=== PATIENT | male | born 1955 | race Caucasian/White ===

== ENCOUNTER 2025-02-15 12:58 | Outpatient (CLI) | payer MEDICARE, SELFPAY ==
--- OUTSIDE RECORDS SUMMARY | 2025-02-15 13:21 | XMS_ITS | Clinical Summary ---
Author Organization [facility] [employer] [facility] Address [address] [phone] Phone Care Team Providers Care Fraud Prevention Analyst Name Role Phone Mandi Francis MD Primary Care Provider [phone] Allergies No known active allergies Medications albuterol HFA (PROVENTIL HFA;VENTOLIN HFA) 108 (90 Base) MCG/ACT inhaler Inhale 2 puffs every 6 hours by inhalation route as needed for 30 days. Active aspirin ([facility] MARIELA) 81 MG EC tablet Take 81 mg by mouth 1 (one) time each day Active clopidogrel (PLAVIX) 75 MG tablet Take 75 mg by mouth 1 (one) time each day Active loratadine (CLARITIN) 10 MG tablet Take 10 mg by mouth 1 (one) time each day Active metoprolol succinate XL (TOPROL XL) 25 MG 24 hr tablet Take 25 mg by mouth 1 (one) time each day Active pravastatin (PRAVACHOL) 40 MG tablet Take 40 mg by mouth 1 (one) time each day Active Fluticasone Furoate-Vilante rol (Breo Ellipta) 100-25 MCG/ACT aerosol powder Inhale 1 (one) time each day Active losartan (COZAAR) 50 MG tablet Take 50 mg by mouth 1 (one) time each day Active Active Problems Problem Noted Date Diagnosed Date Chronic kidney disease stage 3B 01/11/2025 Osteoarthritis 01/11/2025 Chronic obstructive pulmonary disease 01/11/2025 Peripheral vascular disease 01/11/2025 Disorder of kidney 10/26/2024 Cataract 12/11/2023 Prediabetes 08/14/2023 Well controlled type 2 diabetes mellitus 024 Essential hypertension 03/26/2023 Hyperlipidemia 03/26/2023 Encounters Date Type Department Care Team Description 01/29/2025 Documentation Only [facility], [address] [place] [phone] Gee Rocha MD 01/13/2025 Documentation Only [facility], [address] [place] [address] Gee Rocha MD 01/12/2025 Documentation Only [facility], [facility] [address] [facility] [address] [place] [address] Gee Rocha MD 01/11/2025 10:45 AM COMPUTER TYPESETTER Office Visit [facility], [address] [place] [address] Gee Rocha MD Chronic kidney disease stage 3B (HCC); Essential hypertension; Prediabetes; Hyperlipidemia, not otherwise specified; Peripheral vascular disease (HCC); Primary generalized osteoarthritis; Simple chronic bronchitis (HCC) from Last 3 Months Family History Medical History Relation Comments Cancer Maternal Grandfather Cancer Mother Diabetes Mother Relation Status Comments Father Maternal Grandfather Mother Social History Tobacco Use Types Packs/Day Years Used Date Smoking Tobacco: Former Cigarettes Tobacco Cessation:Counseling Given: Not Answered Alcohol Use Standard Drinks/Week Comments Not Currently 0 (1 standard drink = 0.6 oz pur e alcohol) Sex and Gender Information Value Date Recorded Sex Assigned at Not on file Legal Sex Male 11:28 AM EDT Gender Identity Not on file Sexual Orientation Not on file Last Filed Vital Signs Vital Sign Reading Time Taken Comments Blood Pressure 130/80 01/11/2025 11:32 AM COMPUTER TYPESETTER Pulse 103 01/11/2025 11:32 AM COMPUTER TYPESETTER Temperature 36.8 C (98.2 F) 01/11/2025 11:32 AM COMPUTER TYPESETTER Respiratory Rate 18 01/11/2025 11:32 AM COMPUTER TYPESETTER Oxygen Saturation 95% 01/11/2025 11:32 AM COMPUTER TYPESETTER Inhaled Oxygen Concentration - - Weight 78.9 kg (174 lb) 01/11/2025 11:32 AM COMPUTER TYPESETTER Height 175.3 cm (5' 9) 01/11/2025 11:32 AM COMPUTER TYPESETTER Body Mass Index 25.7 01/11/2025 11:32 AM COMPUTER TYPESETTER Plan of Treatment Upcoming Encounters Date Type Department Care Team (Late st Contact Info) Description 02/23/2025 10:15 AM COMPUTER TYPESETTER Office Visit [facility], [facility] [address] [facility] [address] [place] [phone] Gee Rocha MD [address] [place] [address] Health Maintenance Due Date Last Done Comments Colorectal Cancer Screening: Annual FOBT 2006 Colorectal Cancer Screening: Colonoscopy 2006 Colorectal Cancer Screening: Sigmoidoscopy 2006 Pneumococcal Vaccine: 50+ Ye ars (2 of 2 - PCV) 03/26/2024 03/26/2023 Influenza Vaccine (#1) 2024 12/11/2023 Diabetes: Hemoglobin A1C 01/11/2025 09/02/2024 Diabetes: Ophthalmology Exam 01/11/2025 Diabetes: Pedal Pulse Checked 01/11/2025 Diabetes: Sensory Foot Exam 01/11/2025 Diabetes: Visual Foot Exam 01/11/2025 Hepatitis B Vaccine Aged Out No longe r eligible based on patient's age to complete this topic Procedures Procedure Name Priority Date/Time Associated Diagnosis Comments EXT RESULT ENTRY Routine 09/02/2024 from Last 3 Months or Most Recently Relevant to Health Maintenance Results * (ABNORMAL) EXT RESULT ENTRY (09/02/2024) WBC 12.1(A) 3.3 - 10.0 10*3/ML Red Blood Cell Count 4.85 Hemoglobin 14.9 13.5 - 17.5 Hematocrit 43.8 41.0 - 53.0 Platelets 394 150 - 399 10*3/UL MCV 90.3 82.0 - 108.0 Sodium 140 137 - 147 Potassium 4.5 3.4 - 5.5 Chloride 101.0 99.0 - 108.0 Carbon Dioxide 28 mmol/L Anion Gap 14.5 <=30 MMOL/L Glucose 127 60 - 200 BUN 24(A) 4 - 21 mg/dL Creatinine 1.63(A) 0.60 - 1.30 mg/dL Total Protein 7.0 6.4 - 8.2 G/DL Albumin 4.5 3.5 - 5.0 g/dL Calcium 9.6 8.7 - 10.7 mg/dL eGFR Non-Afr [place] 42(L) Hemoglobin A1C 6.1(A) 4.0 - 6.0 Triglycerides 149 Cholesterol, Total 163 HDL 29(L) mg/dL LDL-Calculated 104 09/02/2024 us Historical Provider LAB BLOOD ORDERABLES Hayley l Result from Last 3 Months or Most Recently Relevant to Health Maintenance Insurance A[employer] MCR Adv ([id number]) Advance Directives Documents on File Type Date Recorded Patient Speed Runner Expl anation Advance Care Planning 01/12/2025 8:08 AM Care Teams Fraud Prevention Analyst Relationship Specialty Start Date End Date Mandi rFancis MD [address] [place] [id number] PCP - General Internal Medicine 10/26/24
--- OUTSIDE RECORDS SUMMARY | 2025-02-15 13:21 | XMS_ITS | Clinical Summary ---
Author Organization [facility] Address [address] [place] [address] Care Team Providers Care Pattern Data Operator Name Role Phone Tito Raymond MD Primary Care Provider Allergies No known active allergies Medications albuterol sulfate HFA 108 (90 Base) MCG/ACT inhaler Inhale 2 puffs into the lungs every 6 (six) hours as needed for Wheezing. Active aspirin 81 MG chewable tablet Chew 1 tablet (81 mg total) by mouth daily. Active fluticasone furoate-vilante rol (BREO ELLIPTA) 100-25 MCG/ACT inhaler Inhale 1 puff into the lungs daily. Active clopidogrel (PLAVIX) 75 MG tablet Take 1 tablet (75 mg total) by mouth daily. Active loratadine (CLARITIN) 10 MG tablet Take 1 tablet (10 mg total) by mouth daily. Active meloxicam (MOBIC) 15 MG tablet Take 1 tablet (15 mg total) by mouth daily. Active metoprolol succinate ER (TOPROL-XL) 25 MG 24 hr tablet Take 1 tablet (25 mg total) by mouth daily. Active pravastatin (PRAVACHOL) 40 MG tablet Take 1 tablet (40 mg total) by mouth nightly at bedtime. Active Social History Tobacco Use Types Packs/Day Years Used Date Smoking Tobacco: Former Cigarettes Smokeless Tobacco: Never Tobacco Cessation:Counseling Given: Not Answered Alcohol Use Standard Drinks/Week Comments Not Currently 0 (1 standard drink = 0.6 oz pur e alcohol) occ. Sex and Gender Information Value Date Recorded Sex Assigned at Not on file Legal Sex Male 2:49 PM DOG BEHAVIORIST Gender Identity Not on file Sexual Orientation Not on file Last Filed Vital Signs Vital Sign Reading Time Taken Comments Blood Pressure 142/101 05/11/2024 9:57 AM CDT Pulse 82 05/11/2024 9:57 AM CDT Temperature 36.4 C (97.5 F) 05/11/2024 8:55 AM CDT Respiratory Rate 16 05/11/2024 8:55 AM CDT Oxygen Saturation 97% 05/11/2024 9:57 AM CDT Inhaled Oxygen Concentration - - Weight 81.6 kg (180 lb) 05/11/2024 8:55 AM CDT Height 175.3 cm (5' 9) 05/11/2024 8:55 AM CDT Body Mass Index 26.58 05/11/2024 8:55 AM CDT Plan of Treatment Health Maintenance Due Date Last Done Comments Colorectal Cancer Screening Colonoscopy (10 Years) 1957 Hepatitis C 08/20/1975 Zoster Vaccines (1 of 2) 08/20/2007 AAA SCREENING 2022 Annual Medicare Wellness Visit 2022 COVID-19 Vaccine ( season) 2024 12/14/2021, 01/25/2021, 06/21/2020, Additional history exists Influenza Adult (#1) 2024 12/11/2023, 12/15/2021, 12/19/2013 RSV Immunization or 60+ Years (1 - 1-dose 75+ series) 2032 DTaP, Tdap and Td Vaccines (2 - Td or Tdap) 10/09/2032 10/09/2022 Pneumococcal Vaccine: 50+ Years Completed 03/26/2023, 10/09/2022 Hepatitis A Vaccines Aged Out No long er eligible based on patient's age to complete this topic Meningococcal B Vaccine Aged Out No l onger eligible based on patient's age to complete this topic Meningococcal Vaccine Aged Out No papo dolly eligible based on patient's age to complete this topic RSV Immunizations Under 20 Months Aged Out No longer eligible based on patient's age to complete this topic Medical Devices Implanted Type Area Head Screen Worker Device Identifier Shelf Expiration Date Model / Serial / Lot Tecnis 1-Piece Iol With Tecnis Simplicity Delivery System Implanted:Qty: 1 on 05/11/2024 by Otis Caldwell MD at [facility] Lens Left: Eye [employer] 10/08/2026 / [id number] / Tecnis 1-Piece Iol With Tecnis Simplicity Delivery System Implanted:Qty: 1 on 04/13/2024 by Otis Caldwell MD at [facility] Right: Eye [employer] 10/09/2025 [id number] / [id number] / Insurance [facility] MEDICARE Care Teams Pattern Data Operator Relationship Specialty Start Date End Date Tito Raymond MD [address] [place] [phone] PCP - General INTERNAL MEDICINE 04/07/24
--- OUTSIDE RECORDS SUMMARY | 2025-02-15 13:21 | XMS_ITS | Data Portability ---
Author Organization [facility] Address [address] [place] [address] Care Team Providers Care [employer] Inspector Name Role Phone SARWAT WHEELER Primary Care Provider Assessment Encounter Date Assessment Date Assessment LastModified by Organization Details LastModified Time 01/20/2021 01/20/2021 GAEL Riley Not available 01/20/2021 13:32:08 12/21/2021 12/21/2021 GAEL Stallings Not available 12/21/2021 15:00:26 07/03/2022 07/03/2022 Altagracia MAYO Not available 07/03/2022 12:15:51 Plan of Treatment Reminders Order Date Submit Date Provider Last Modified By Organization Details Last Modified Time Details Appointments None recorded. Lab HbA1c (hemoglobi n A1c), blood 2022 023 GEORGE PÉREZ, Mika [address], [address], [place], [address], 3 09:16:41 CMP, serum or plasma 2022 023 GEORGE PÉREZ, [facility] [address], [address], [place], [address], 3 06:17:48 CBC w/ auto diff 2022 023 [facility] [address], [facility] [address], [place], [address], 3 06:17:49 lipid panel, serum 2022 023 GEORGE PÉREZ, Mika [address], [address], [place], [address], 3 06:17:47 TSH + free T4, serum 2022 023 GEORGE PÉREZ, Mika [address], [address], [place], [address], 3 09:16:41 albumin/cr eatinine, mass ratio, urine 2022 023 tbogueVincent PÉREZ, Mika [address], [address], [place], [address], 3 12:51:45 ferritin, serum or plasma 2021 022 GEORGE PÉREZ, Mika [address], [address], [place], [address], 2 08:16:11 iron + total iron-breanna ng capacity (TIBC), serum 2021 022 GEORGE PÉREZ, Mika [address], [address], [place], [address], 2 08:16:10 CBC w/ auto diff 2021 022 GEORGE PÉREZ, Mika [address], [address], [place], [address], 2 08:16:09 erythrocyt e sedimentat ion rate by westergren method 2021 022 GEORGE PÉREZ, Mika [address], [address], [place], [address], 08:16:10 C reactive protein, QN, serum or plasma 2021 [facility] [address] [facility], [address], [place], [address], 08:16:11 Referral None recorded. Procedures None recorded. Surgeries None recorded. Imaging electrocar diogram 2021 [facility] ([facility]), [address] [place], [address], 14:50:21 XR, chest, 2 view 2021 [facility] ([facility]), [address] [place], [address], 14:50:21 Medication Orders fluticason e propionate 50 mcg/actuat ion nasal spray,susp ension 2022 023 [id number] In [facility], [address] [place] [address], [address], 3 12:51:44 loratadine 10 mg tablet 2022 023 [facility] 67116 In [facility], [address] [place] [address], [address], 3 12:51:44 metoprolol succinate ER 25 mg tablet,ext ended release 24 hr 2022 023 [facility] [address], [address], 3 12:51:44 clopidogre l 75 mg tablet 2022 023 [facility] [address], [address], 3 12:51:44 albuterol sulfate HFA 90 mcg/actuat ion aerosol inhaler 2022 023 [facility] 11958 In [facility], [address] [place] [address], [address], 3 12:51:44 Breo Ellipta 100 mcg-25 mcg/dose powder for inhalation 2022 023 [facility] 71461 In [facility], [address] [place] [address], [address], 3 12:51:45 losartan 50 mg tablet 2022 023 [facility] 42531 In [facility], [address] [place] [address], [address], 3 12:51:45 fluticason e propionate 50 mcg/actuat ion nasal spray,susp ension 2022 023 GEORGE [facility] 24537 In [facility], [address] [place] [address], [address], 3 12:00:52 loratadine 10 mg tablet 2022 023 GEORGE [facility] 51853 In [facility], [address] [place] [address], [address], 3 12:00:53 metoprolol succinate ER 25 mg tablet,ext ended release 24 hr 2022 023 GEORGE [facility] 77078 In [facility], [address] [place] [address], [address], 3 12:19:24 clopidogre l 75 mg tablet 2022 023 GEORGE [facility] 53248 In [facility], [address] [place] [address], [address], 3 12:00:53 budesonide -formotero l HFA 160 mcg-4.5 mcg/actuat ion aerosol inhaler 2022 023 [facility] 92829 In [facility], [address] [place] [address], [address], 3 12:31:47 albuterol sulfate HFA 90 mcg/actuat ion aerosol inhaler 2022 023 GEORGE [facility] 78662 In [facility], [address] [place] [address], [address], 3 12:00:52 fluticason e propionate 50 mcg/actuat ion nasal spray,susp ension 2021 022 GEORGE [facility] [address], [address], 2 13:03:13 loratadine 10 mg tablet 2021 022 GEORGE [facility] [address], [address], 2 13:03:15 clopidogre l 75 mg tablet 2021 022 GEORGE [facility] [address], [address], 2 13:03:13 guaifenesi n ER 600 mg tablet, extended release 12 hr 2021 023 GEORGE [facility] [address], [address], 3 11:23:21 Medrol (Erik) 4 mg tablets in a dose pack 2021 022 [facility] [address], [address], 3 11:31:46 cefdinir 300 mg capsule 2021 022 [facility] [address], [address], 3 11:31:43 losartan 50 mg tablet 2021 022 GEORGE [facility] [address], [address], 2 13:03:15 fluticason e propionate 50 mcg/actuat ion nasal spray,susp ension 2021 022 GEORGE [facility] [address], [address], 2 12:18:30 loratadine 10 mg tablet 2021 022 GEORGE [facility] [address], [address], 2 13:39:50 Symbicort 160 mcg-4.5 mcg/actuat ion HFA aerosol inhaler 2021 022 [facility] [address], [address], 3 12:31:47 guaifenesi n ER 600 mg tablet, extended release 12 hr 2021 022 [facility] [address], [address], 3 11:23:13 Medrol (Erik) 4 mg tablets in a dose pack 2021 022 [facility] [address], [address], 3 11:31:46 albuterol sulfate HFA 90 mcg/actuat ion aerosol inhaler 2021 022 [facility]OR[facility] [address], [address], 21:02:21 clopidogre l 75 mg tablet 2021 022 GEORGE [facility] [address], [address], 13:29:40 losartan 50 mg tablet 2021 022 [facility] [address], [address], 13:29:40 hydrochlor othiazide 12.5 mg tablet 2020 021 [facility] [address], [address], 13:01:51 Patient TargetsNo targets recorded. Patient Instructions Encounter Date Encounter Id Patient Instructions Last Modified By Organization Details Last Modified Time 12/21/2021 [id number] A healthy lifestyle: care instructions Not available 12/21/2021 15:50:23 chronic obstructive pulmonary disease (COPD): care instructions Not available 12/21/2021 12:53:46 chronic obstructive pulmonary disease (COPD) flare-ups: care instructions Not available 12/21/2021 12:53:45 COPD exacerbatio n plan: care instructions Not available 12/21/2021 12:53:46 07/03/2022 [id number] A healthy lifestyle: care instructions Not available 07/03/2022 12:00:49 10/09/2022 [id number] A healthy lifestyle: care instructions Not available 10/09/2022 12:51:44 Reason for Referral None Reported. Results Created Date Observation Date Name Description Value Unit Range Abnormal Flag Note LastModifiedBy Organization Detail LastModifiedTime 12/23/19 21 12/23/2020 TSH+F REE T4 TSH 1.880 uIU/m L 0.450- 4.500 Not Available [facility] ([facility]) [address] [place], [address], 12/23/2020 10:12:02 12/23/19 21 12/23/2020 TSH+F REE T4 T4,free(dire ct) 1.29 NG/dL 0.82-1 .77 Not Available [facility] ([facility]) [address] [place], [address], 12/23/2020 10:12:02 12/23/19 21 12/23/2020 CBC WITH DIFFE RENTI AL/PL ATELE T WBC 9.6 x10e3 /uL 3.4-10 .8 Not Available [facility] ([facility]) [address] [place], [address], 12/23/2020 10:12:02 12/23/19 21 12/23/2020 CBC WITH DIFFE RENTI AL/PL ATELE T RBC 5.35 x10e6 /uL 4.14-5 .80 Not Available [facility] ([facility]) [address] [place], [address], 12/23/2020 10:12:02 12/23/19 21 12/23/2020 CBC WITH DIFFE RENTI AL/PL ATELE T hemoglobin 17.3 g/dL 13.0-1 7.7 Not Available [facility] ([facility]) [address] [place], [address], 12/23/2020 10:12:02 12/23/19 21 12/23/2020 CBC WITH DIFFE RENTI AL/PL ATELE T hematocrit 50.0 % 37.5-5 1.0 Not Available [facility] ([facility]) [address] [place], [address], 12/23/2020 10:12:02 12/23/19 21 12/23/2020 CBC WITH DIFFE RENTI AL/PL ATELE T MCV 94 fL 79-97 Not Available [facility] ([facility]) [address] [place], [address], 12/23/2020 10:12:02 12/23/19 21 12/23/2020 CBC WITH DIFFE RENTI AL/PL ATELE T MCH 32.3 pg 26.6-3 3.0 Not Available [facility] ([facility]) [address] [facility], [place], [address], 12/23/2020 10:12:02 12/23/19 21 12/23/2020 CBC WITH DIFFE RENTI AL/PL ATELE T MCHC 34.6 g/dL 31.5-3 5.7 Not Available [facility] ([facility]) [address] [place], [address], 12/23/2020 10:12:02 12/23/19 21 12/23/2020 CBC WITH DIFFE RENTI AL/PL ATELE T RDW 11.7 % 11.6-1 5.4 Not Available [facility] ([facility]) [address] [place], [address], 12/23/2020 10:12:02 12/23/19 21 12/23/2020 CBC WITH DIFFE RENTI AL/PL ATELE T platelets 355 x10e3 /uL 150-45 0 Not Available [facility] ([facility]) [address] [place], [address], 12/23/2020 10:12:02 12/23/19 21 12/23/2020 CBC WITH DIFFE RENTI AL/PL ATELE T neutrophils 65 % not estab. Not Available [facility] ([facility]) [address] [place], [address], 12/23/2020 10:12:02 12/23/19 21 12/23/2020 CBC WITH DIFFE RENTI AL/PL ATELE T lymphs 20 % not estab. Not Available [facility] ([facility]) [address] [facility], [place], [address], 12/23/2020 10:12:02 12/23/19 21 12/23/2020 CBC WITH DIFFE RENTI AL/PL ATELE T monocytes 9 % not estab. Not Available [facility] ([facility]) [address] [facility], [place], [address], 12/23/2020 10:12:02 12/23/19 21 12/23/2020 CBC WITH DIFFE RENTI AL/PL ATELE T eos 5 % not estab. Not Available [facility] ([facility]) [address] [facility], [place], [address], 12/23/2020 10:12:02 12/23/19 21 12/23/2020 CBC WITH DIFFE RENTI AL/PL ATELE T basos 1 % not estab. Not Available [facility] ([facility]) [address] [place], [address], 12/23/2020 10:12:02 12/23/19 21 12/23/2020 CBC WITH DIFFE RENTI AL/PL ATELE T immature cells PATTERN CUTTER Not Available [facility] ([facility]) [address] [place], [address], 12/23/2020 10:12:02 12/23/19 21 12/23/2020 CBC WITH DIFFE RENTI AL/PL ATELE T neutrophils (absolute) 6.2 x10e3 /uL 1.4-7. 0 Not Available [facility] ([facility]) [address] [facility], [place], [address], 12/23/2020 10:12:02 12/23/19 21 12/23/2020 CBC WITH DIFFE RENTI AL/PL ATELE T lymphs (absolute) 1.9 x10e3 /uL 0.7-3. 1 Not Available [facility] ([facility]) [address] [facility], [place], [address], 12/23/2020 10:12:02 12/23/19 21 12/23/2020 CBC WITH DIFFE RENTI AL/PL ATELE T monocytes(ab solute) 0.8 x10e3 /uL 0.1-0. 9 Not Available [facility] ([facility]) [address] [facility], [place], [address], 12/23/2020 10:12:02 12/23/19 21 12/23/2020 CBC WITH DIFFE RENTI AL/PL ATELE T eos (absolute) 0.5 x10e3 /uL 0.0-0. 4 above high normal Not Available [facility] ([facility]) [address] [facility], [place], [address], 12/23/2020 10:12:02 12/23/19 21 12/23/2020 CBC WITH DIFFE RENTI AL/PL ATELE T baso (absolute) 0.1 x10e3 /uL 0.0-0. 2 Not Available [facility] ([facility]) [address] [facility], [place], [address], 12/23/2020 10:12:02 12/23/19 21 12/23/2020 CBC WITH DIFFE RENTI AL/PL ATELE T immature granulocytes 0 % not estab. Not Available [facility] ([facility]) [address] [facility], [place], [address], 12/23/2020 10:12:02 12/23/19 21 12/23/2020 CBC WITH DIFFE RENTI AL/PL ATELE T immature grans (abs) 0.0 x10e3 /uL 0.0-0. 1 Not Available [facility] ([facility]) [address] [facility], [place], [address], 12/23/2020 10:12:02 12/23/19 21 12/23/2020 CBC WITH DIFFE RENTI AL/PL ATELE T NRBC PATTERN CUTTER Not Available [facility] ([facility]) [address] [facility], [place], [address], 12/23/2020 10:12:02 12/23/19 21 12/23/2020 CBC WITH DIFFE RENTI AL/PL ATELE T hematology comments: PATTERN CUTTER Not Available [facility] ([facility]) [address] [facility], [place], [address], 12/23/2020 10:12:02 12/23/19 21 12/23/2020 LIPID PANEL cholesterol, total 209 mg/dL 100-19 9 above high normal Not Available [facility] ([facility]) [address] [facility], [place], [address], 12/23/2020 10:12:03 12/23/19 21 12/23/2020 LIPID PANEL triglyceride s 99 mg/dL 0-149 Not Available [facility] ([facility]) [address] [facility], [place], [address], 12/23/2020 10:12:03 12/23/19 21 12/23/2020 LIPID PANEL HDL cholesterol 52 mg/dL >39 Not Available [facility] ([facility]) [address] [facility], [place], [address], 12/23/2020 10:12:03 12/23/19 21 12/23/2020 LIPID PANEL VLDL cholesterol rajesh 18 mg/dL 5-40 Not Available [facility] ([facility]) [address] [facility], [place], [address], 12/23/2020 10:12:03 12/23/19 21 12/23/2020 LIPID PANEL LDL chol calc ([facility]) 139 mg/dL 0-99 above high normal Not Available [facility] ([facility]) [address] [place], [address], 12/23/2020 10:12:03 12/23/19 21 12/23/2020 LIPID PANEL comment: PATTERN CUTTER Not Available [facility] ([facility]) [address] [place], [address], 12/23/2020 10:12:03 12/23/19 21 12/23/2020 IRON AND TIBC iron bind.cap.(TI BC) 303 ug/dL 250-45 0 Not Available [facility] ([facility]) [address] [place], [address], 12/23/2020 10:12:04 12/23/19 21 12/23/2020 IRON AND TIBC UIBC 108 ug/dL 111-34 3 below low normal Not Available [facility] ([facility]) [address] [place], [address], 12/23/2020 10:12:04 12/23/19 21 12/23/2020 IRON AND TIBC iron 195 ug/dL 38-169 above high normal Not Available [facility] ([facility]) [address] [place], [address], 12/23/2020 10:12:04 12/23/19 21 12/23/2020 IRON AND TIBC iron saturation 64 % 15-55 above high normal Not Available [facility] ([facility]) [address] [place], [address], 12/23/2020 10:12:04 12/23/19 21 12/23/2020 ALBUM IN/CR EATIN INE RATIO ,URIN E creatinine, urine 169.7 mg/dL not estab. Not Available [facility] ([facility]) [address] [place], [address], 12/23/2020 10:12:05 12/23/19 21 12/23/2020 ALBUM IN/CR EATIN INE RATIO ,URIN E albumin, urine 12.9 ug/mL not estab. Not Available [facility] ([facility]) [address] [place], [address], 12/23/2020 10:12:05 12/23/19 21 12/23/2020 ALBUM IN/CR EATIN INE RATIO ,URIN E alb/creat ratio 8 mg/g_ creat 0-29 Haily l: 0 - 29 Moder ately incre ased: 30 - 300 Sever iliana incre ased: >300 Not Available [facility] ([facility]) [address] [facility], [place], [address], 12/23/2020 10:12:05 12/23/19 21 12/23/2020 WOODY TIN ferritin 821 NG/mL 30-400 above high normal Not Available [facility] ([facility]) [address] [facility], [place], [address], 12/23/2020 10:12:06 06/07/19 22 06/07/2021 CBC WITH DIFFE RENTI AL/PL ATELE T WBC 9.2 x10e3 /uL 3.4-10 .8 Not Available [facility] ([facility]) [address] [place], [address], 06/07/2021 08:16:09 06/07/19 22 06/07/2021 CBC WITH DIFFE RENTI AL/PL ATELE T RBC 4.75 x10e6 /uL 4.14-5 .80 Not Available [facility] ([facility]) [address] [place], [address], 06/07/2021 08:16:09 06/07/19 22 06/07/2021 CBC WITH DIFFE RENTI AL/PL ATELE T hemoglobin 14.6 g/dL 13.0-1 7.7 Not Available [facility] ([facility]) [address] [place], [address], 06/07/2021 08:16:09 06/07/19 22 06/07/2021 CBC WITH DIFFE RENTI AL/PL ATELE T hematocrit 43.6 % 37.5-5 1.0 Not Available [facility] ([facility]) [address] [facility], [place], [address], 06/07/2021 08:16:09 06/07/19 22 06/07/2021 CBC WITH DIFFE RENTI AL/PL ATELE T MCV 92 fL 79-97 Not Available [facility] ([facility]) [address] [facility], [place], [address], 06/07/2021 08:16:09 06/07/19 22 06/07/2021 CBC WITH DIFFE RENTI AL/PL ATELE T MCH 30.7 pg 26.6-3 3.0 Not Available [facility] ([facility]) [address] [facility], [place], [address], 06/07/2021 08:16:09 06/07/19 22 06/07/2021 CBC WITH DIFFE RENTI AL/PL ATELE T MCHC 33.5 g/dL 31.5-3 5.7 Not Available [facility] ([facility]) [address] [place], [address], 06/07/2021 08:16:09 06/07/19 22 06/07/2021 CBC WITH DIFFE RENTI AL/PL ATELE T RDW 12.3 % 11.6-1 5.4 Not Available [facility] ([facility]) [address] [place], [address], 06/07/2021 08:16:09 06/07/19 22 06/07/2021 CBC WITH DIFFE RENTI AL/PL ATELE T platelets 327 x10e3 /uL 150-45 0 Not Available [facility] ([facility]) [address] [place], [address], 06/07/2021 08:16:09 06/07/19 22 06/07/2021 CBC WITH DIFFE RENTI AL/PL ATELE T neutrophils 63 % not estab. Not Available [facility] ([facility]) [address] [facility], [place], [address], 06/07/2021 08:16:09 06/07/19 22 06/07/2021 CBC WITH DIFFE RENTI AL/PL ATELE T lymphs 21 % not estab. Not Available [facility] ([facility]) [address] [facility], [place], [address], 06/07/2021 08:16:09 06/07/19 22 06/07/2021 CBC WITH DIFFE RENTI AL/PL ATELE T monocytes 8 % not estab. Not Available [facility] ([facility]) [address] [facility], [place], [address], 06/07/2021 08:16:09 06/07/19 22 06/07/2021 CBC WITH DIFFE RENTI AL/PL ATELE T eos 7 % not estab. Not Available [facility] ([facility]) [address] [facility], [place], [address], 06/07/2021 08:16:09 06/07/19 22 06/07/2021 CBC WITH DIFFE RENTI AL/PL ATELE T basos 1 % not estab. Not Available [facility] ([facility]) [address] [facility], [place], [address], 06/07/2021 08:16:09 06/07/19 22 06/07/2021 CBC WITH DIFFE RENTI AL/PL ATELE T immature cells PATTERN CUTTER Not Available [facility] ([facility]) [address] [place], [address], 06/07/2021 08:16:09 06/07/19 22 06/07/2021 CBC WITH DIFFE RENTI AL/PL ATELE T neutrophils (absolute) 5.8 x10e3 /uL 1.4-7. 0 Not Available [facility] ([facility]) [address] [place], [address], 06/07/2021 08:16:09 06/07/19 22 06/07/2021 CBC WITH DIFFE RENTI AL/PL ATELE T lymphs (absolute) 1.9 x10e3 /uL 0.7-3. 1 Not Available [facility] ([facility]) [address] [facility], [place], [address], 06/07/2021 08:16:09 06/07/19 22 06/07/2021 CBC WITH DIFFE RENTI AL/PL ATELE T monocytes(ab solute) 0.7 x10e3 /uL 0.1-0. 9 Not Available [facility] ([facility]) [address] [facility], [place], [address], 06/07/2021 08:16:09 06/07/19 22 06/07/2021 CBC WITH DIFFE RENTI AL/PL ATELE T eos (absolute) 0.6 x10e3 /uL 0.0-0. 4 above high normal Not Available [facility] ([facility]) [address] [facility], [place], [address], 06/07/2021 08:16:09 06/07/19 22 06/07/2021 CBC WITH DIFFE RENTI AL/PL ATELE T baso (absolute) 0.1 x10e3 /uL 0.0-0. 2 Not Available [facility] ([facility]) [address] [facility], [place], [address], 06/07/2021 08:16:09 06/07/19 22 06/07/2021 CBC WITH DIFFE RENTI AL/PL ATELE T immature granulocytes 0 % not estab. Not Available [facility] ([facility]) [address] [place], [address], 06/07/2021 08:16:09 06/07/19 22 06/07/2021 CBC WITH DIFFE RENTI AL/PL ATELE T immature grans (abs) 0.0 x10e3 /uL 0.0-0. 1 Not Available [facility] ([facility]) [address] [facility], [place], [address], 06/07/2021 08:16:09 06/07/19 22 06/07/2021 CBC WITH DIFFE RENTI AL/PL ATELE T NRBC PATTERN CUTTER Not Available [facility] ([facility]) [address] [facility], [place], [address], 06/07/2021 08:16:09 06/07/19 22 06/07/2021 CBC WITH DIFFE RENTI AL/PL ATELE T hematology comments: PATTERN CUTTER Not Available [facility] ([facility]) [address] [facility], [place], [address], 06/07/2021 08:16:09 06/07/19 22 06/07/2021 IRON AND TIBC iron bind.cap.(TI BC) 243 ug/dL 250-45 0 below low normal Not Available [facility] ([facility]) [address] [facility], [place], [address], 06/07/2021 08:16:10 06/07/19 22 06/07/2021 IRON AND TIBC UIBC 143 ug/dL 111-34 3 Not Available [facility] ([facility]) [address] [facility], [place], [address], 06/07/2021 08:16:10 06/07/19 22 06/07/2021 IRON AND TIBC iron 100 ug/dL 38-169 Not Available [facility] ([facility]) [address] [facility], [place], [address], 06/07/2021 08:16:10 06/07/19 22 06/07/2021 IRON AND TIBC iron saturation 41 % 15-55 Not Available [facility] ([facility]) [address] [facility], [place], [address], 06/07/2021 08:16:10 06/07/19 22 06/07/2021 SEDIM ENTAT ION RATE- WESTE RGREN sedimentatio n rate-westerg deepa 11 mm/HR 0-30 Not Available [facility] ([facility]) [address] [place], [address], 06/07/2021 08:16:10 06/07/19 22 06/07/2021 WOODY TIN ferritin 838 NG/mL 30-400 above high normal Not Available [facility] ([facility]) [address] [place], [address], 06/07/2021 08:16:11 06/07/19 22 06/07/2021 C-AMY CTIVE PROTE IN, QUANT C-reactive protein, quant 6 mg/L 0-10 Not Available [facility] ([facility]) [address] [place], [address], 06/07/2021 08:16:11 10/10/19 23 10/09/2022 LIPID PANEL cholesterol, total 219 mg/dL 100-19 9 above high normal Not Available [facility] [address] [place], [address], 10/10/2022 06:17:47 10/10/19 23 10/09/2022 LIPID PANEL triglyceride s 126 mg/dL 0-149 Not Available [facility] [address] [place], [address], 10/10/2022 06:17:47 10/10/19 23 10/09/2022 LIPID PANEL HDL cholesterol 39 mg/dL 40-999 below low normal Not Available [facility] [address] [place], [address], 10/10/2022 06:17:47 10/10/19 23 10/09/2022 LIPID PANEL VLDL cholesterol rajesh 25 mg/dL 5-40 Not Available [facility] [address] [place], [address], 10/10/2022 06:17:47 10/10/19 23 10/09/2022 LIPID PANEL LDL chol calc (nih) 172 mg/dL 0-99 above high normal Not Available [facility] [address] [place], [address], 10/10/2022 06:17:47 10/10/19 23 10/09/2022 COMP. METAB OLIC PANEL (14) glucose 103 mg/dL 70-99 above high normal Not Available [facility] [address] [place], [address], 10/10/2022 06:17:48 10/10/19 23 10/09/2022 COMP. METAB OLIC PANEL (14) BUN 13 mg/dL 8-[address] [facility] [address] [place], [address], 10/10/2022 06:17:48 10/10/19 23 10/09/2022 COMP. METAB OLIC PANEL (14) creatinine 1.03 mg/dL 0.76-[address] [facility] [address] [place], [address], 10/10/2022 06:17:48 10/10/19 23 10/09/2022 COMP. METAB OLIC PANEL (14) eGFR 81 >=60 Units for eGFR value s are mL/mi n/1.7 3 The eGFR Calcu latio n has not been valid ated for patie nts under the age of 18. If test resul ts are displ ayed for a patie nt under the age of 18, disre kamilah that value . Not Available [facility] [address] [place], [address], 10/10/2022 06:17:48 10/10/1910/09/2022 COMP. METAB OLIC PANEL (14) BUN/creatini ne ratio 13 10-24 Not Available [facility] [address] [place], [address], 10/10/2022 06:17:48 10/10/19 23 10/09/2022 COMP. METAB OLIC PANEL (14) sodium 142 mmol/ L 134-[address] [facility] [address] [place], [address], 10/10/2022 06:17:48 10/10/19 23 10/09/2022 COMP. METAB OLIC PANEL (14) potassium 4.8 mmol/ L 3.5-5. [address] [facility] [address] [place], [address], 10/10/2022 06:17:48 10/10/19 23 10/09/2022 COMP. METAB OLIC PANEL (14) chloride 103 mmol/ L 96-[address] [facility] [address] [place] [address], [address], 10/10/2022 06:17:48 10/10/19 23 10/09/2022 COMP. METAB OLIC PANEL (14) carbon dioxide, total 26 mmol/ L 20-[address] [facility] [address] [place], [address], 10/10/2022 06:17:48 10/10/19 23 10/09/2022 COMP. METAB OLIC PANEL (14) calcium 9.6 mg/dL 8.6-[address] [facility] [address] [place] [address], [address], 10/10/2022 06:17:48 10/10/19 23 10/09/2022 COMP. METAB OLIC PANEL (14) protein, total 7.2 g/dL 6.0-8. [address] [facility] [address] [place], [address], 10/10/2022 06:17:48 10/10/19 23 10/09/2022 COMP. METAB OLIC PANEL (14) albumin 4.5 g/dL 3.9-4. [address] [facility] [address] [place] [address], [address], 10/10/2022 06:17:48 10/10/19 23 10/09/2022 COMP. METAB OLIC PANEL (14) globulin, total 2.7 g/dL 1.5-4. [address] [facility] [address] [place], [address], 10/10/2022 06:17:48 10/10/19 23 10/09/2022 COMP. METAB OLIC PANEL (14) A/G ratio 2.0 1.2-2. [address] [facility] [address] [place], [address], 10/10/2022 06:17:48 10/10/19 23 10/09/2022 COMP. METAB OLIC PANEL (14) bilirubin, total 0.6 mg/dL 0.0-1. [address] [facility] [address] [place], [address], 10/10/2022 06:17:48 10/10/19 23 10/09/2022 COMP. METAB OLIC PANEL (14) alkaline phosphatase 63 IU/L 44-121 Not Available [facility] [address] [place], [address], 10/10/2022 06:17:48 10/10/19 23 10/09/2022 COMP. METAB OLIC PANEL (14) AST (SGOT) 16 IU/L 0-40 Not Available [facility] [address] [place], [address], 10/10/2022 06:17:48 10/10/19 23 10/09/2022 COMP. METAB OLIC PANEL (14) ALT (SGPT) 16 IU/L 0-44 Not Available [facility] Department [address] [place] [address], [address], 10/10/2022 06:17:48 10/10/19 23 10/09/2022 CBC WITH DIFFE RENTI AL/PL ATELE T WBC 11.3 x10e3 /uL 3.4-10 .8 above high normal Not Available [facility] [address] [place], [address], 10/10/2022 06:17:49 10/10/19 23 10/09/2022 CBC WITH DIFFE RENTI AL/PL ATELE T RBC 5.31 x10e6 /uL 4.14-[address] [facility] [address] [place], [address], 10/10/2022 06:17:49 10/10/19 23 10/09/2022 CBC WITH DIFFE RENTI AL/PL ATELE T hemoglobin 16.1 g/dL 13.0-[address] [facility] [address] [place], [address], 10/10/2022 06:17:49 10/10/19 23 10/09/2022 CBC WITH DIFFE RENTI AL/PL ATELE T hematocrit 48.9 % 37.5-[address] [facility] [address] [place], [address], 10/10/2022 06:17:49 10/10/19 23 10/09/2022 CBC WITH DIFFE RENTI AL/PL ATELE T MCV 92 fL 79-[address] [facility] [address] [place], [address], 10/10/2022 06:17:49 10/10/19 23 10/09/2022 CBC WITH DIFFE RENTI AL/PL ATELE T MCH 30.3 pg 26.6-[address] [facility] [address] [place], [address], 10/10/2022 06:17:49 10/10/19 23 10/09/2022 CBC WITH DIFFE RENTI AL/PL ATELE T MCHC 32.9 g/dL 31.5-[address] [facility] [address] [place], [address], 10/10/2022 06:17:49 10/10/1910/09/2022 CBC WITH DIFFE RENTI AL/PL ATELE T RDW 13.0 % 11.5-[address] [facility] [address] [place], [address], 10/10/2022 06:17:49 10/10/1910/09/2022 CBC WITH DIFFE RENTI AL/PL ATELE T platelets 348 x10e3 /uL 150-[address] [facility] [address] [place], [address], 10/10/2022 06:17:49 10/10/1910/09/2022 CBC WITH DIFFE RENTI AL/PL ATELE T neutrophils 72 % notest b. Not Available [facility] [address] [place], [address], 10/10/2022 06:17:49 10/10/1910/09/2022 CBC WITH DIFFE RENTI AL/PL ATELE T lymphs 15 % notest b. Not Available [facility] [address] [place], [address], 10/10/2022 06:17:49 10/10/1910/09/2022 CBC WITH DIFFE RENTI AL/PL ATELE T monocytes 8 % notest b. Not Available [facility] [address] [place], [address], 10/10/2022 06:17:49 10/10/1910/09/2022 CBC WITH DIFFE RENTI AL/PL ATELE T eos 4 % notest b. Not Available [facility] [address] [place], [address], 10/10/2022 06:17:49 10/10/1910/09/2022 CBC WITH DIFFE RENTI AL/PL ATELE T basos 1 % notest b. Not Available [facility] [address] [place], [address], 10/10/2022 06:17:49 10/10/1910/09/2022 CBC WITH DIFFE RENTI AL/PL ATELE T neutrophils (absolute) 8.2 x10e3 /uL 1.4-7. 0 above high normal Not Available [facility] [address] [place], [address], 10/10/2022 06:17:49 10/10/1910/09/2022 CBC WITH DIFFE RENTI AL/PL ATELE T lymphs (absolute) 1.7 x10e3 /uL 0.7-3. [address] [facility] [address] [place] [address], [address], 10/10/2022 06:17:49 10/10/1910/09/2022 CBC WITH DIFFE RENTI AL/PL ATELE T monocytes(ab solute) 1.0 x10e3 /uL 0.1-0. 9 above high normal Not Available [facility] [address] [place], [address], 10/10/2022 06:17:49 10/10/1910/09/2022 CBC WITH DIFFE RENTI AL/PL ATELE T eos (absolute) 0.4 x10e3 /uL 0.0-0. [address] [facility] [address] [place], [address], 10/10/2022 06:17:49 10/10/1910/09/2022 CBC WITH DIFFE RENTI AL/PL ATELE T baso (absolute) 0.1 x10e3 /uL 0.0-0. [address] [facility] [address] [place] [address], [address], 10/10/2022 06:17:49 10/10/1910/09/2022 CBC WITH DIFFE RENTI AL/PL ATELE T immature granulocytes 0.3 % notest b. Not Available [facility] [address] [place], [address], 10/10/2022 06:17:49 10/10/1910/09/2022 CBC WITH DIFFE RENTI AL/PL ATELE T immature grans (abs) 0.0 x10e3 /uL 0.0-0. [address] [facility] [address] [place], [address], 10/10/2022 06:17:49 10/10/1910/09/2022 CBC WITH DIFFE RENTI AL/PL ATELE T NRBC 0 % 0-[address] [facility] [address] [place], [address], 10/10/2022 06:17:49 10/10/1910/10/2022 TSH+F REE T4 TSH 2.330 uIU/m L 0.450- 4.500 Not Available [facility] ([facility]) [address] [facility], [place], [address], 10/10/2022 09:16:40 10/10/1910/10/2022 TSH+F REE T4 T4,free(dire ct) 1.08 NG/dL 0.82-1 .77 Not Available [facility] ([facility]) [address] [place], [address], 10/10/2022 09:16:40 10/10/1910/10/2022 HEMOG LOBIN A1C hemoglobin A1C 6.2 % 4.8-5. 6 above high normal Predi abete s: 5.7 - 6.4 Diabe van: >6.4 Glyce christopher contr ol for adult s with diabe van: <7.0 Not Available [facility] ([facility]) [address] [facility], [place], [address], 10/10/2022 09:16:41 Result Notes None recorded. Problems Name Problem SNOMED Code Status Onset Date Resolution Date Notes Provider Name and Address Organization Details Recorded Time Essential hypertensio n 11034297 Active 2019 Urmila dejesus, [place] - [facility] 2 09:46:25 Peripheral arterial occlusive disease 404047959 Active 2019 Urmila Re[place], [place] [facility] 2 09:46:25 Hyperlipide katie 01303086 Active 2020 Urmila Re[place], [place] [facility] 2 09:46:25 Leukocytosi s 091422298 Completed 202012/23/2020 [facility] Attn: Accountin g,[address] [facility], [place], [address], [place] [facility] 1 14:56:35 Relative polycythemi a 190512054 Completed 202012/23/2020 [facility]ANG NI Attn: Accountin g,[address] [facility], [place], [address], [place] [facility] 1 14:56:32 Serum ferritin above reference range 826310162 Active 2020 Urmila Re[place] [facility] 2 09:46:25 Impaired glucose tolerance 0704979 Active 2022 [facility] Attn: Accountin g,[address] [facility], [place], [address], [place] [facility] 3 09:31:23 Problem Notes None recorded. Procedures Surgical History Date Name Laterality Status Provider Name and Address Organization Details Recorded Time 5 Angioplasty With Stent completed Catie Pat[place] - [facility] 06/03/2019 08:32:34 4 colonoscopy completed [facility] Attn: Accounting,[address] [facility], [place], [address], [place] [facility] 12/04/2019 10:49:06 Knee Surgery completed Catie PASTOR Patino [place] - [facility] 06/03/2019 08:32:46 Imaging Results None recorded. Procedure Notes None recorded. Medical Equipment None Reported. Allergies No known drug allergies Medications Name Sig Start Date Stop Date Status Note LastModified by Organization Details LastModified Time losartan 50 mg tablet TAKE 1 TABLET BY MOUTH EVERY DAY DIRECTED active Not Available Not Available No t Available atorvastati n 20 mg tablet Take 1 tablet every day by oral route at bedtime for 30 days. 12/22 completed Not Available Not Available Not Available pravastatin 40 mg tablet TAKE 1 TABLET BY MOUTH EVERY DAY AT BEDTIME FOR 30 DAYS active Not Available Not Available No t Available lisinopril 20 mg tablet TAKE 1 TABLET BY MOUTH EVERY DAY DIRECTED FOR 30 DAYS 12/22 completed Not Available Not Available Not Available clopidogrel 75 mg tablet TAKE 1 TABLET BY MOUTH EVERY DAY DIRECTED active Not Available Not Available No t Available metoprolol succinate ER 25 mg tablet,exte nded release 24 hr Take 1 tablet(s) every day by oral route in the morning for 30 days. active Not Available Not Available No t Available methylpredn isolone 4 mg tablets in a dose pack TAKE PER PACKAGE INSTRUCTI ONS 04/19 completed Not Available Not Available Not Available albuterol sulfate HFA 90 mcg/actuati on aerosol inhaler INHALE 2 PUFFS EVERY 6 HOURS BY MOUTH NEEDED. active Not Available Not Available No t Available lisinopril 40 mg tablet TAKE 1 TABLET BY MOUTH EVERY DAY IN THE MORNING 05/15 completed Not Available Not Available Not Available cefdinir 300 mg capsule TAKE 1 CAPSULE BY MOUTH EVERY 12 HOURS DIRECTED FOR 7 DAYS 04/19 completed Not Available Not Available Not Available fluticasone propionate 50 mcg/actuati on nasal spray,suspe nsion P[place] 1 spray every day by intranasa l route as directed for 30 days. 2022 active Not Available Not Available Not Avai lable loratadine 10 mg tablet TAKE 1 TABLET BY MOUTH EVERY DAY NEEDED active Not Available Not Available No t Available Adult Low Dose Aspirin 81 mg tablet,jeremy yed release Take 1 tablet(s) every day by oral route as directed for 30 days. active Not Available Not Available No t Available rosuvastati n 20 mg tablet TAKE 1 TABLET BY MOUTH EVERY DAY IN THE MORNING 05/15 completed Not Available Not Available Not Available hydrochloro thiazide 12.5 mg tablet TAKE 1 TABLET BY MOUTH EVERY DAY IN THE MORNING 05/15 completed Not Available Not Available Not Available budesonide- formoterol HFA 160 mcg-4.5 mcg/actuati on aerosol inhaler INHALE 2 PUFFS INTO THE LUNGS TWICE A DAY DIRECTED 10/09 completed Not Available Not Available Not Available Breo Ellipta 100 mcg-25 mcg/dose powder for inhalation INHALE 1 PUFF BY MOUTH EVERY DAY DIRECTED active Not Available Not Available No t Available guaifenesin ER 600 mg tablet, extended release 12 hr Take 1 tablet every 12 hours by oral route as needed for 14 days. 07/03 completed Not Available Not Available Not Available Vitals Date Recorded Body height Body mass index (BMI) Body weight Heart rate Body temperature Oxygen saturation Systolic And Diastolic Provider Name and Address Organization Details Last Updated DateTime 2 175.26 cm 26.2 kg/m2 80517.0 4 g 89 /min 97.5 [degF] 97 % 126/80 mm[Hg] Catie Patino MA [facility] 2 13:00:32 Date Recorded Heart rate Systolic And Diastolic Provider Name and Address Organization Details Last Updated DateTime 07/03/2022 112 /min 146/98 mm[Hg] FANG NI Attn: Accounting[address] [place], [address], [facility] 07/03/2022 16:31:43 Date Recorded Body height Body mass index (BMI) Body weight Heart rate Body temperature Oxygen saturation Systolic And Diastolic Provider Name and Address Organization Details Last Updated DateTime 3 175.26 cm 26.4 kg/m2 94075.0 3 g 127 /min 98.9 [degF] 97 % 160/98 mm[Hg] Catie Patino MA [facility] 3 11:22:32 Date Recorded Body height Body mass index (BMI) Body weight Oxygen saturation Heart rate Systolic And Diastolic Provider Name and Address Organization Details Last Updated DateTime 3 175.26 cm 27.1 kg/m2 08866.2 8 g 96 % 92 /min 144/90 mm[Hg] Lita Gómez MA [facility] 3 12:02:35 Date Recorded Body height Heart rate Oxygen saturation Body mass index (BMI) Body weight Provider Name and Address Organization Details Last Updated DateTime 12/21/2021 175.26 cm 102 /min 99 % 26.4 kg/m2 85879.63 g Catie Patino MA [facility] 2 12:25:49 Date Recorded Heart rate Systolic And Diastolic Provider Name and Address Organization Details Last Updated DateTime 01/20/2021 88 /min 145/86 mm[Hg] FANG [facility] Attn: Accounting[address] [place], [address], [facility] 01/20/2021 12:11:51 Date Recorded Body height Body mass index (BMI) Body weight Heart rate Body temperature Oxygen saturation Systolic And Diastolic Provider Name and Address Organization Details Last Updated DateTime 175.26 cm 27.2 kg/m2 81207.4 g 108 /min 98.3 [degF] 97 % 156/86 mm[Hg] Catie Patino MA [facility] 1 11:41:15 Social History Question Answer Notes LastModified by Organizat ion Details LastModified Time Tobacco Smoking Status Former Smoker Catie Patino MA null, [facility] 06/03/2019 08:31:54 Do You Have An Advance Directive? No Information n ot available 06/14/2020 In The 14 Days Before Symptom Onset, Have You Had Close Contact With A Laboratory-confirm ed COVID-19 While That Case Was Ill? No Information n ot available 06/14/2020 In The 14 Days Before Symptom Onset, Have You Had Close Contact With A Person Who Is Under Investigation For COVID-19 While That Person Was Ill? No Information not available 06/14/2020 Have You Been To An Area Known To Be High Risk For COVID-19? No Information not available 06/14/2020 What Was The Date Of Your Most Recent Tobacco Screening? 10/09/2022 [email or web address] Information not available 10/09/2022 What Is Your Relationship Status? Single Information not available 06/14/2020 Are You Sexually Active? Yes Information not available 06/14/2020 Do You Have Smoke And Carbon Monoxide Detectors In Your Home? Yes Information not available 06/14/2020 Are You Passively Exposed To Smoke? Yes Information no t available 06/14/2020 How Much Tobacco Do You Smoke? No Information not available 06/03/2019 Has Tobacco Cessation Counseling Been Provided? No Information not available 12/21/2021 On What Date Was Tobacco Cessation Counseling Provided? 07/03/2022 Information not available 07/03/2022 How Many Years Have You Smoked Tobacco? 40 Information not available 06/03/2019 Sex: Male Functional Status Question Answer Note LastModified by Organizat ion Details LastModified Time Do you use any illicit or recreational drugs? Yes marijuana Information not available 12/22/2020 Do you or have you ever used any other forms of tobacco or nicotine? No Information not available 12/21/2021 What is your level of alcohol consumption? None Information not available 05/15/2021 Do you or have you ever used smokeless tobacco? Never used smokeless tobacco Information not available 06/03/2019 Are you currently employed? No Information not available 06/14/2020 Do you or have you ever used e-cigarettes or vape? Never used electronic cigarettes Information not available 06/03/2019 Mental Status None recorded. Family History Relationship Description Onset Age of this Age Resolved Age Notes LastModified by Organization Details LastModified Time Father No current problems or disability [email or web address] Not available 06/02 08:31:46 Mother No current problems or disability [email or web address] Not available 06/02 08:31:46 Medical History Condition Response Coronary Artery Disease N Other N Atrial Fibrillation N High Blood Pressure Y Depression N COPD N Blood Clots Y Anxiety Disorder N Muscle, Joint, or Bone Problems Y Acid Reflux (GERD) Y Cancer N Stroke N High Cholesterol N Liver Disease N Headaches N Kidney or Bladder Problems N Thyroid Problems N GI Problems N Skin Problems N Anemia N Heart Attack ([place]) N Diabetes N Seizures/Epilepsy N Asthma N Allergies N Hepatitis N Heart Failure N Osteoporosis N Immunizations Vaccine Type Date Status Note Provider Nam e and Address Organization Details Recorded Time COVID-19, mRNA, LNP-S, PF, 30 mcg/0.3 mL dose 1 completed Tonja King LPN [place], [place] [facility] 01/27/2021 15:03:00 COVID-19, mRNA, LNP-S, PF, 30 mcg/0.3 mL dose 1 completed Catie [place] [facility] 05/15/2021 12:49:42 COVID-19, mRNA, LNP-S, PF, 30 mcg/0.3 mL dose 1 completed Catie [place] [facility] 05/15/2021 12:50:11 COVID-19, mRNA, LNP-S, bivalent, PF, 30 mcg/0.3 mL dose 2 completed Xenia Loya RN [place] [facility] 12/18/2021 10:56:35 influenza, unspecified formulation 2 completed Xenia Loya [place] [facility] 12/18/2021 10:56:54 Pneumococcal conjugate PCV20, polysaccharide [id number] conjugate, adjuvant, PF 3 completed [facility] Attn: Accounting[address] [place], [address], [place] [facility] 10/09/2022 12:51:46 Tdap 3 completed [facility] Attn: Accounting[address] [place], [address], [place] [facility] 10/09/2022 12:51:46 Past Encounters Encounter ID Performer Location Encounter Start Date Encounter Closed Date Diagnosis/Indication Diagnosis SNOMED-CT Code Diagnosis ICD10 Code Diagnosis IMO Codes Diagnosis Note [id number] [facility] (Adult Med) [address] [place] [address] 06/03/2019 08:26:37 06/11/2019 15:19:51 Essential hypertension 49282094 I10 Hx of HTNTakes lisinopril 20 mg qdBP well controlled at home- will send BP medication to pharmacy Peripheral arterial occlusive disease 330195688 I73.9 Hx of PAD, stent placed in leg in 2014Takes clopidogre l [address] Gary, cardiology annually- will refill medication Adult [facility] th examination 822935623 Z00.00 Here today to get establishe dNeeds to return for [email or web address] e physical, will wait till COVID-19 is over before coming to officePHQ 03/29 was negative in office today (2 out of 27) [id number] [facility] (Adult Med) [address] [place] [phone] 12/04/2019 07:55:10 12/07/2019 09:58:04 Essential hypertension 32839708 I10 Hx of HTNTakes lisinopril 20 mg qdBP well controlled at home- will send BP medication to pharmacy Peripheral arterial occlusive disease 711651492 I73.9 Hx of PAD, stent placed in leg in 2014Takes clopidogre l 75 mg qdNo longer following with Dr. Gary, cardiology due to insurance reasons- will refill medication - consider cardiology referral again if needed [id number] [facility] (Adult Med) [address] [place] [phone] 06/14/2020 11:12:23 06/15/2020 12:25:15 Essential hypertension 16921331 I10 Hx of HTN Takes lisinopril 20 mg qd BP well controlled at home - will send BP medication to pharmacy - due for labs, come to office for fasting labs Peripheral arterial occlusive disease 164229620 I73.9 Hx of PAD, stent placed in leg in 2014 Takes clopidogre l 75 mg qd, does not remember being started on ASA or cholestero l medication No longer following with Dr. Gary, cardiology due to insurance reasons - will refill medication - consider cardiology referral again if needed - will check cholestero l levels Adult [facility] th examination 019782872 Z00.00 PHQ 03/29 was negative in office today (2 out of 27) No labs recorded at this office - lab work ordered, encouraged him to come to office for fasting labs [id number] [facility] (Adult Med) [address] [place] [phone] 12/22/2020 11:22:38 12/23/2020 21:29:32 Essential hypertension 11227847 I10 Hx of HTN. BP elevated today 165/100 and HR 106-138 He takes lisinopril 20 mg qd for his blood pressure, states he has been on same dose for many years, BP usually 140-150/9 at home.- will increase lisinopril from 20 mg to 40 mg daily- will start metoprolol 25 mg daily to help with HR, will watch for worsening breathing- due for labs- f/u in 1 month Hyperlipidemia 73067900 E78.5 He admits to poor tolerance of his statin medication due to forgetting to take at night and also causing him GI SE.- will try switching from atorvastat in to rosuvastat in, also can take rosuvastat in in the morning with other medication s due to its long half-life Peripheral arterial occlusive disease 366692570 I73.9 Hx of PAD, stent placed in leg in 2014 Takes clopidogre l 75 mg qd, does not remember being started on ASA or cholestero l medication No longer following with Dr. Gary, cardiology due to insurance reasons - will refill medication - consider cardiology referral again if needed - will check cholestero l levels Leukocytosis 785749717 D 72.829 WBC slightly elevated Hx of smoking, quit 10-15 years ago - will recheck today Relative polycythemia 38 9553149 D75.1 Hgb and Hct slightly elevated with last set of labs Hx of PAD s/p stent in lower extremity - will recheck today Sinus tachycardia 284357 01 R00.0 HR today 106-138, regular rhythm, patient asymptomat ic- will check TSH- will start beta-block er- would like to complete additional testing and refer to cardiology but patient does not have insurance. Discussed getting him in touch with insurance coordinato r to help. Chronic ob structive pulmonary disease 13638062 J44.9 Hx of smoking 1-2 PPD x 40 years, quit 10-15 years agoAdmits to chronic cough with clear mucus, SOB with activity- would like to get PFTs but no insurance at this time- will start albuterol, use PRN [id number] [facility] (Adult Med) [address] [place] [phone] 01/20/2021 11:24:35 01/23/2021 11:51:34 Essential hypertension 40904522 I10 Hx of HTN. BP elevated today 156/86 and HR 108. Rechecked after resting- BP of 145/86 and HR 88 Has been taking lisinopril 40 mg qd and metoprolol 25 mg as prescribed . Denies any current symptoms- Continue lisinopril from 20 mg to 40 mg daily- Continue metoprolol 25 mg daily to help with HR, will watch for worsening breathing- Start HCT 12.5 mg- f/u in 2 months Hyperlipidemia 43306729 E78.5 Has had resolution of abdominal SE symptoms with rosuvastat in. Has been taking as prescribed - Continue rosuvastat in Dyspnea on exertion 6084 5006 R06.09 HR 88 at rest, and 108 after minimal exertion with associated SOB.- further cardiology work-up recommende d but patient wants to wait until next month when he has insurance- c/w metoprolol 25 mg Serum ferr itin above reference range 348694144 R77.8 06/29/2020: Hgb high, hct high 021: Hgb and hct normal, Iron elevated at 195, Iron sat high at 64%, ferritin elevated at 821Unable to see Hematology yet, plan to see them once he has insurance at the beginning of next year. [id number] [facility] (Adult Med) [address] [place] [phone] 05/15/2021 12:41:52 05/16/2021 12:52:27 Essential hypertension 17791062 I10 Hx of HTN. BP today: 126/80 Since last visit, stopped his cholestero l medication , HCTZ, and metoprolol , states they were making him feel worse and making his breathing worse. He is still taking the lisinopril but feels like it is causing him to have a dry cough.- switch from lisinopril to losartan 50 mg daily- c/w other medication s right now since BP seems well controlled - f/u in 1 month Dyspnea on exertion 6084 5006 R06.09 His biggest concern right now is his breathing, SOB at rest, and DIAZ. Feels like he is really struggling to breathe over the last few months, he will having coughing attacks where he ultimately feels like he is going to pass out because he cant breathe.He is not sleeping much at night because of the SOB and will have to use his inhaler every 2-4 hours right now. He can hear himself wheezing.H e still does not have insurance so hesitant on lots of imaging or referrals, notes he should have insurance by next month.Hx of smoking 2 PPD x 25 years, quit 10-15 years ago.- discussed concern for pulmonary and cardiac disease, he still does not have insurance, will at least order EKG and chest xray to get completed in the next month prior to insurance- due to his lung sounds in the office today, will start tx with medrol dose pack. Was hoping to give a breathing tx but still not providing in the office due to COVID- start maintenanc e inhaler and allergy medication s- if symptoms get worse or develops pressure like chest pain, go to the ER- f/u in 1 month Hyperlipidemia [id number] E78.5 Has had resolution of abdominal SE symptoms with rosuvastat in compared to atorvastat in. Ended up stopping this medication recently because he thought it was making his breathing worse- continue to hold for now, will likely need to restart Serum ferr itin above reference range [id number] R77.8 06/29/2020: Hgb high, hct high 021: Hgb and hct normal, Iron elevated at 195, Iron sat high at 64%, ferritin elevated at 821- Unable to see Hematology yet since still no insurance- will repeat these labs to ensure stable Peripheral arterial occlusive disease [id number] I73.9 Hx of PAD, stent placed in leg in 2014 Takes clopidogre l 75 mg qd, does not remember being started on ASA or cholestero l medication No longer following with Dr. Gary, cardiology due to insurance reasons - will refill medication - consider cardiology referral again if needed - likely needs to be restarted on cholestero l medication once his breathing is stabilized Ex-smoker [id number] Z87.89 1 His biggest concern right now is his breathing, SOB at rest, and DIAZ. He is struggling to breathe over the last few months, he will having coughing attacks where he ultimately feels like he is going to pass out because he cant breathe.Us ing his inhaler every 2-4 hours right now. He can hear himself wheezing.H x of smoking 2 PPD x 25 years, quit 10-15 years ago.- steroids for wheezing heard on exam today- start cough medication and percussion to his back during coughing attacks, drink lots of water to help thin secretions - start maintenanc e inhaler Allergic rhinitis [id number] [id number] J30.9 Having large amounts of clear rhinorrhea and sinus pressure x 3-4 weeks.- start oral and nasal allergy medication s today [id number] [facility] (Adult Med) [address] [place] [id number] 12/21/2021 11:47:43 12/25/2021 12:09:41 Acute exacerbation of chronic obstructive pulmonary disease [id number] J44.1 Deep cough x 3 days. Admits green mucus today coughing as of today, sputum clear the previous 2 days. Consistent episodes of coughing fits, feels very faint and causes abd pain. Admits runny nose, SOB, wheeze, dyspnea, headache. Denies fever, chills, n/v, chest pain.-Has been taking cough and chest congestion syrup, and Mucinex. States helps w/ his cough.-Use s Albuterol 8-10x daily for the past few days, is helpful -Provided COPD info packets regarding dx and COPD exacerbati on in office today.-Gua ifenesin 600 mg tab prn every 12 hrs x14 days-Start Medrol pack to help reduce inflammati on-Start Cefdinir 300mg every 12 hrs x 7 days-Advis ed pt to see ER if severe/wor sening SOB, emesis, chest pain. etc.- rec. him to f/u in 2 weeks to ensure improvemen t but states he can not afford to return in 2 weeks Essential hypertension [id number] I10 Hx of HTN. BP today: 126/80. Recently discontinu ed lisinopril due to developmen t of cough. BP seems well controlled now. -continue losartan 50 mg daily Peripheral arterial occlusive disease [id number] I73.9 Hx of PAD, stent placed in leg in 2015 Takes clopidogre l 75 mg qd, does not remember being started on ASA or cholestero l medication No longer following with Dr. Gary, cardiology due to insurance reasons - Medication refilled today - consider cardiology referral again if needed - likely needs to be restarted on cholestero l medication once his breathing is stabilized Ex-smoker [id number] Z87.89 1 His biggest concern right now is his breathing, SOB at rest, and DIAZ. He is struggling to breathe over the last few months, he will having coughing attacks where he ultimately feels like he is going to pass out because he cant breathe. Has not followed up for PFT and to discuss Symbicort. Hx of smoking 2 PPD x 25 years, quit 10-15 years ago.- steroids for wheezing heard on exam today- start cough medication and percussion to his back during coughing attacks, drink lots of water to help thin secretions - Pt has not been consistent ly using Symbicort only sporadical ly. advised to use Symbicort regularly for maintenanc e.-F/u for PFT order, needs to not be sick during time of PFTS Allergic rhinitis [id number] 04 J30.9 Symptoms well controlled w/ Flonase and Loratadine . Refills provided today. Overweight [id number] E66 .3 Advised decreased portion sizes, good food choices, limited eating out or fast food and eliminate soda and juice from diet. Advised physical activity daily and offered encouragem ent to continue with positive changes made so far. [id number] [facility] (Adult Med) [address] [place] [phone] 07/03/2022 11:09:16 07/06/2022 13:01:39 Overweight [id number] E66.3 Advised decreased portion sizes, good food choices, limited eating out or fast food and eliminate soda and juice from diet. Advised physical activity daily and offered encouragem ent to continue with positive changes made so far. Hyperlipidemia [id number] E78.5 Has had resolution of abdominal SE symptoms with rosuvastat in compared to atorvastat in. Ended up stopping this medication recently because he thought it was making his breathing worse in 2021.- Continue to hold for now, will get labs at upcoming visit when insurance kicks in and then likely restart Essential hypertension 93289150 I10 Hx of HTN. BP today: 168/98 after walking into office. 146/98 again after resting x 5-10 minutes. Did not take losartan today before his visit In the past, discontinu ed lisinopril due to developmen t of cough. No complaints of any cough today. BP elevated. - Continue losartan 50 mg daily- Start metoprolol succinate ER 25 mg once daily to help with tachycardi a and BP, monitor for worsening breathing with b-rodrigo - Will continue to monitor BP; informed patient to contact the office if he has any change in dizziness, palpitatio ns, increase heart rate or feelings of hypotensio n Peripheral arterial occlusive disease [id number] I73.9 Hx of PAD, stent placed in leg in 2014 Takes clopidogre l 75 mg qd. rosuvastat in medication stopped a few years ago due to SE. No longer following with Dr. Gary, cardiology due to insurance reasons - Medication refilled today - Consider cardiology referral again at next visit when insurance starts - Likely needs to be restarted on cholestero l medication once his breathing is stabilized Ex-smoker [id number] Z87.89 1 Admits to mild SOB and DOEHx of smoking 2 PPD x 25 years, quit 10-15 years ago.- Continue inhaler containing steroids for wheezing heard on exam today- Continue to use Symbicort regularly for maintenanc e.-F/U for PFT and chest xray order at next visit when insurance is active Allergic rhinitis 933146 04 J30.9 Symptoms well controlled w/ Flonase and Loratadine . Refills provided today. Chronic ob structive pulmonary disease 39823974 J44.9 Hx of smoking 1-2 PPD x 40 years, quit 10-15 years agoAdmits to chronic cough with clear mucus, SOB with activity- Will plan to order PFTs at next visit when insurance is active- Continue budesonide -formotero l HFA - two puffs in the AM and PM daily- Continue albuterol, use PRN Sinus tachycardia 241682 01 R00.0 HR today 106-138, regular rhythm, patient asymptomat ic - Patient had been on metoprolol in the past in combinatio n with HCTZ and cholestero l medication , but stopped because he said they were making him feel worse and worsen his breathing. - Start metoprolol succinate ER 25 mg tablet once daily; SE reviewed: hypotensio n, headaches, dizziness, or increasing fatigue- Will continue to monitor for these symptoms when restarting the medication d/t his past complaint- Would like to complete additional testing and refer to cardiology but patient does not have insurance till August when Medicare starts. Will order tests at next visit. Depression screening [id number] Z13.31 PHQ 2/9 was negative in office today (0 out of 27) [id number] [facility] (Adult Med) [address] [place] [phone] 10/09/2022 11:49:22 10/10/2022 14:10:46 Essential hypertension [id number] I10 Hx of HTN. BP today: 144/90. Did not take losartan and metoprolol today before his visit In the past, discontinu ed lisinopril due to developmen t of cough. No complaints of any cough today. BP elevated. - Continue losartan 50 mg daily- c/w metoprolol succinate ER 25 mg once daily - Will continue to monitor BP; informed patient to contact the office if he has any change in dizziness, palpitatio ns, increase heart rate or feelings of hypotensio n Sinus tachycardia 736799 01 R00.0 Prior HR at last visit: 106-138HR today: 92, notes he has been feeling great with metoprolol medication - c/w metoprolol succinate ER 25 mg tablet once daily; SE reviewed: hypotensio n, headaches, dizziness, or increasing fatigue Hyperlipidemia 00523664 E78.5 Has had resolution of abdominal SE symptoms with rosuvastat in compared to atorvastat in. Ended up stopping this medication recently because he thought it was making his breathing worse in 2021.- Continue to hold for now, will get labs today to recheck Peripheral arterial occlusive disease [id number] I73.9 Hx of PAD, stent placed in leg in 2014 Takes clopidogre l 75 mg qd. rosuvastat in medication stopped a few years ago due to SE. No longer following with Dr. Gary, cardiology due to insurance reasons - Medication refilled today - Consider cardiology referral again at next visit when insurance starts - Likely needs to be restarted on cholestero l medication once his breathing is stabilized Allergic rhinitis 692703 04 J30.9 Symptoms well controlled w/ Flonase and Loratadine . Refills provided today. Chronic ob structive pulmonary disease 69640081 J44.9 Hx of smoking 1-2 PPD x 40 years, quit 10-15 years agoAdmits to chronic cough with clear mucus, SOB with activityAd mits slightly worse breathing and wheezing due to current humidity but notes it improves with decrease in temperatur e. He is using his inhalers as prescribed which is helping his breathing, notes insurance is no longer covering current maintenanc e inhaler.- Will plan to order PFTs at next visit when insurance is active- change to Breo since prior inhaler no longer covered, if still too expensive, please let me know- Continue albuterol, use PRN Ex-smoker [id number] Z87.89 1 Admits to mild SOB and DOEHx of smoking 2 PPD x 25 years, quit 10-15 years ago.- Continue inhaler containing steroids for wheezing heard on exam today- maintenanc e inhaler switched today due to insurance issues-F/U for PFT and chest xray order at next visit when insurance is active Overweight [id number] E66 .3 Advised decreased portion sizes, good food choices, limited eating out or fast food and eliminate soda and juice from diet. Advised physical activity daily and offered encouragem ent to continue with positive changes made so far. Active or passive immunization [id number] Z23 Completed during visit today- plans to return next month for NO visit for flu vaccine Health Concerns Section Related Observation LastModified by Organization Detai ls LastModified Time None Recorded Concern Status LastModified by Organization Details LastModified Time None Recorded Advance Directives Directive N: Payers Insurance Date Sequence Insurance Name Policy Number Policy Martinez Covered Member ID Martinez Member ID Guarantor Name 10/09/2022 1 *SELF PAY* [facility] 01/20/2021 SLIDING FEE SCHEDULE - DISCOUNT Vishal Interiano 10/09/2022 SLIDING FEE SCHEDULE - DISCOUNT Vishal Interiano 10/09/2022 1 [facility] (MEDICARE REPLACEMENT/A DVANTAGE - HMO) [id number] Vishal Interiano [id number] Vishal Interiano 07/03/2022 SLIDING FEE SCHEDULE - DISCOUNT Vishal Interiano Notes Date Note Type Note Provider Name and Address Organization Details Recorded Time 01/20/2021 text/html ROS as noted in the HPI 65 year old male presents today for re-evaluaiton of elevated blood pressure. His blood pressure mediation was altered last visit to Lisinporil 40mg and Metoprolol 25mg. He reports taking them as prescribed and currently denies any symptoms of HTN. He admits to mild DIAZ. He is tolerating new statin medication better than Atorvastatin, no longer having SE. Unable to see Hematology yet, plan to see them once he has insurance at the beginning of next year. Denies fever, chills, nausea, vomiting, headaches, chest pain, SOB, abdominal pain, diarrhea, constipation, or dysuria. [facility] Attn: [address] [facility], [place], [address], [facility] 01/20/2021 14:03:49 05/15/2021 text/html ROS as noted in the HPI 65 year old male presents today for 3 month f/u. Since last visit, stopped his cholesterol medication, HCTZ, and metoprolol, states they were making him feel worse and making his breathing worse. He is still taking the lisinopril but feels like it is causing him to have a dry cough. His biggest concern right now is his breathing, SOB at rest, and DIAZ. Feels like he is really struggling to breathe over the last few months, he will having coughing attacks where he ultimately feels like he is going to pass out because he cant breathe. He is not sleeping much at night because of the SOB and will have to use his inhaler every 2-4 hours right now. He can hear himself wheezing. Also having large amounts of clear rhinorrhea and sinus pressure x 3-4 weeks. He still does not have insurance so hesitant on lots of imaging or referrals, notes he should have insurance by next month. Hx of smoking 2 PPD x 25 years, quit 10-15 years ago. Denies fever, chills, nausea, vomiting, headaches, chest pain, palpitations, abdominal pain, diarrhea, constipation, or dysuria. [facility] Attn: [employer]ing[address] [facility], [place], [address], [facility] 05/15/2021 21:06:31 12/21/2021 text/html 66 y/o F presents for continuous cough. Last seen over 6 months ago. Does not have insurance and states it is too expensive to come here and get his medications every month. Hx of feeling sick x 2 weeks, cough has worsened over the last 3 days. Admits coughing up green mucus as of today, sputum clear the previous two days. States during episodes of coughing fits, feels very faint and causes abd pain. Admits runny nose, SOB, wheeze, dyspnea, headache. Denies fever, chills, n/v, chest pain.-Has been taking cough and chest congestion syrup, and Mucinex. States helps w/ his cough.-Uses Albuterol 8-10x daily for the past few days, is helpful-Does not normally remember to take his budesonide-formote rol, states is not helpful. [facility] Attn: [address] [place], [address], [facility] 12/21/2021 15:53:29 07/03/2022 text/html ROS as noted in the HPI Vishal is a 66 y/o female with history of hypertension, hyperlipidemia, PAD and COPD that presents for a follow up of refill of medication and annual check up. He is doing well today, much improved since last visit when he was sick. He is using his inhalers as prescribed which is helping his breathing. He admits to DIAZ and intermittent racing heart. Stopped smoking in his 40s. Gets insurance when he turns 67 in a few months. Denies fever, chills, nausea, vomiting, headaches, chest pain, abdominal pain, diarrhea, constipation, or dysuria. [facility] Attn: Accounting[address] [place], [address], [facility] 07/03/2022 16:35:22 10/09/2022 text/html ROS as noted in the HPI Vishal is a 67 y/o female with history of hypertension, hyperlipidemia, PAD and COPD that presents for a follow up of refill of medication and annual check up. He is doing well today, admits slightly worse breathing and wheezing due to current humidity but notes it improves with decrease in temperature. He is using his inhalers as prescribed which is helping his breathing, notes insurance is no longer covering current maintenance inhaler. Doing well on metoprolol medication since last visit, feels like it has actually helped the congestion in his chest. Stopped smoking in his 40s. Denies fever, chills, nausea, vomiting, headaches, chest pain, abdominal pain, diarrhea, constipation, or dysuria. [facility] Attn: Accounting[address] [facility], [address], [place] [facility] 10/09/2022 12:54:39
[2025-02-15 13:48] LABS: Add Urine Microscopic? YES; Appearance Urine Clear (Clear); Glucose Urine UA Negative (Negative); Leukocyte Esterase Ur 1+ LEU/UL (Negative); Need Manual Microscopic Reviewed; Nitrate Urine Negative (Negative); Non Pathogenic Casts 0-2; Specific Grav Ur 1.020 (1.001-1.035)
[2025-02-15 13:56] LABS: Albumin Level 4.5 g/dL (3.5-5.1); Anion Gap 7 mmol/L (4-12); Blood Urea Nitrogen 27 mg/dL (9-20); Calcium 9.4 mg/dL (8.4-10.2); Carbon Dioxide 28 mmol/L (22-30); Chloride 103 mmol/L (98-107); Estimated Glomerular Filt Rate 42; Glucose 115 mg/dL (65-110); Potassium 4.6 mmol/L (3.4-5.0); Sodium 138 mmol/L (137-145)
[2025-02-15 14:51] LABS: MALB Creatinine Ratio 5.4 mg/g (0-30)
== END 2025-02-15 12:59 | disposition home or self-care (01) ==
PROVIDERS: PCP Nurse Practitioner; Visit Provider Internal Medicine Nephrology
DX: I12.9 Hypertensive chronic kidney disease with stage 1 through stage 4 chronic kidney disease, or unspecified chronic kidney disease (principal); N18.32 Chronic kidney disease, stage 3b; R73.03 Prediabetes; E78.5 Hyperlipidemia, unspecified; I73.9 Peripheral vascular disease, unspecified; J41.0 Simple chronic bronchitis
CPT/HCPCS: 36415; 80069; 81001; 82043; 87086